=== PATIENT | female | born 1980 | race African-American/Black ===

== ENCOUNTER 2025-05-21 23:35 | Emergency (ER) | payer OTHER ==
[~2025-05-21] VITALS: Ht 162.6 cm; Wt 134.0 kg
[2025-05-21 23:40] VITALS: O2SAT 99
[2025-05-22] MEDS: MAGNESIUM/ALUMINUM HYDROXIDE/SIMETHICONE 30ML UDC PO ONE (00:10)
[2025-05-22] MEDS: ACETAMINOPHEN 325MG TABLET PO ONE (00:10)
[2025-05-22] MEDS: PREDNISONE 20MG TABLET PO ONE (00:11)
[2025-05-22] MEDS ORDERED: EPIN0.3P3 IM (02:34)
[2025-05-22] MEDS ORDERED: P20 MT (02:34)
[2025-05-22] MEDS ORDERED: DIPH25TA62 MT (02:34)
[2025-05-22 02:41] VITALS: BP 156/84; PULSE 64; RESP 18; TEMP 36.7; O2SAT 100
== END 2025-05-22 02:50 | disposition home or self-care (01) ==
LOC: ER 23:35
DX: T78.40XA Allergy, unspecified, initial encounter (principal); R03.0 Elevated blood-pressure reading, without diagnosis of hypertension; Z79.52 Long term (current) use of systemic steroids; Z88.2 Allergy status to sulfonamides; Z91.013 Allergy to seafood; X58.XXXA Exposure to other specified factors, initial encounter
CPT/HCPCS: 99284; 71045; 93005; J7512